=== PATIENT | male | born 1980 | race Caucasian/White ===

== ENCOUNTER 2022-10-20 09:09 | Outpatient (CLI) | payer BC, SELFPAY ==
[2022-10-20 15:03] LABS: Albumin* 4.8 g/dL (3.3-5.0)
[2022-10-20 15:04] LABS: Chloride* 107 mmol/L (96-114); Potassium* 4.5 mmol/L (3.6-5.1); Sodium* 141 mmol/L (135-149)
[2022-10-20 15:06] LABS: Bilirubin Total* 0.9 mg/dL (0.1-1.5); Carbon Dioxide* 28 mmol/L (20-32); Cholesterol* 253 mg/dL (90-199); Creatinine* 0.9 mg/dL (0.5-1.5); Estimated Glomerular Filt Rate 109 ml/min
[2022-10-20 15:07] LABS: Alanine Aminotransferase* 90 U/L (4-50); Alkaline Phosphatase* 108 U/L (40-150); Aspartate Amino Transferase* 40 U/L (12-35); Blood Urea Nitrogen* 14 mg/dL (5-24); Calcium* 9.8 mg/dL (8.4-10.6); Glucose* 106 mg/dL (60-115); Triglycerides* 153 mg/dL (40-149)
[2022-10-20 15:08] LABS: HDL Cholesterol* 48 mg/dL (>=40); LDL Cholesterol Calculated 174 mg/dL (<100)
[2022-10-20 15:24] LABS: Vitamin D 25 Hydroxy* 15 ng/mL (30-80)
== END 2022-10-20 09:10 | disposition home or self-care (01) ==
PROVIDERS: PCP Physician Assistant Medical; Visit Provider Physician Assistant Medical
DX: Z00.00 Encounter for general adult medical examination without abnormal findings (principal); I10 Essential (primary) hypertension; R79.89 Other specified abnormal findings of blood chemistry; Z86.39 Personal history of other endocrine, nutritional and metabolic disease; Z13.6 Encounter for screening for cardiovascular disorders
CPT/HCPCS: 80053; 80061; 82306; 84443